=== PATIENT | male | born 1955 | race African-American/Black ===

== ENCOUNTER 2016-07-20 20:08 | Inpatient (IN) | payer MEDICARE, MEDICAID ==
[~2016-07-20] VITALS: Ht 170.2 cm; Wt 77.1 kg
[2016-07-20 20:24] VITALS: BP 137/99
[2016-07-20 20:46] LABS: BASOPHILS % (AUTO) 3.2 % (0.0-2.0); EOSINOPHILS % (AUTO) 0.5 % (0.0-3.0); LYMPHOCYTES % (AUTO) 10.6 % (20.0-45.0); MEAN CORPUSCULAR HEMOGLOBIN 33.8 PG (27.0-31.0); MEAN CORPUSCULAR HGB CONC 36.5 G/DL (32.0-36.0); MEAN CORPUSCULAR VOLUME 93 FL (80-99); MEAN PLATELET VOLUME 7.6 FL (6.5-10.1); MONOCYTES % (AUTO) 12.8 % (1.0-10.0); PLATELET COUNT 177 K/UL (150-450); RED BLOOD COUNT 4.59 M/UL (4.70-6.10); RED CELL DISTRIBUTION WIDTH 11.1 % (11.6-14.8)
[2016-07-20 21:00] VITALS: BP 150/95
[2016-07-20 21:18] LABS: TROPONIN I < 0.30 ng/mL (<=0.30)
[2016-07-20 21:19] LABS: ALANINE AMINOTRANSFERASE 24 U/L (3-41); ALBUMIN/GLOBULIN RATIO 1.1 (1.0-2.7); ANION GAP 18 (5-15); ASPARTATE AMINO TRANSFERASE 39 U/L (5-40); CALCIUM 9.7 mg/dL (8.6-10.2); CARBON DIOXIDE 23 mEQ/L (20-30); CHLORIDE 92 mEQ/L (98-107); CREATININE 1.1 mg/dL (0.7-1.2); GLOMERULAR FILTRATION RATE > 60 mL/min (>60); HEMOLYSIS 7; POTASSIUM 3.8 mEQ/L (3.4-4.9); SODIUM 133 mEQ/L (135-145); TOTAL PROTEIN 8.2 g/dL (6.6-8.7)
[2016-07-20 21:29] LABS: CKMB 8.6 ng/mL (< 6.7)
[2016-07-20 21:40] LABS: BILIRUBIN,DIRECT 0.2 mg/dL (0.1-0.3)
[2016-07-20 22:00] VITALS: BP 141/94
[2016-07-20] MEDS ORDERED: Nitroglycerin 2% oint pkt TOPIC ONE (22:00)
[2016-07-20] MEDS ORDERED: WELLBUTRIN SR150 M1 PO (22:19)
[2016-07-20] MEDS ORDERED: TAMSULOSIN HCL0.4 MG ORAL (22:19)
[2016-07-20] MEDS ORDERED: METOPROLOL ER-1 EACH PO (22:19)
[2016-07-20] MEDS ORDERED: ATIVAN2 MG ORAL (22:19)
[2016-07-20] MEDS ORDERED: NORVASC10 MG ORAL (22:41)
[2016-07-20] MEDS ORDERED: ARIPIPRAZOLE10 MG PO (22:41)
[2016-07-20] MEDS ORDERED: NICOTINE LOZENGE2 MG BC (22:41)
[2016-07-20 23:13] VITALS: BP 141/94
--- NOTE | 2016-07-20 23:16 | Emergency Room Report ---
History of Present Illness General Chief Complaint: Chest Pain Source: Patient, EMS Present Illness HPI 60-year-old male presents ED complaining of chest pain. States that chest pain started around 3 PM today while at rest. Pain is left-sided, sharp, 7/10, nonradiating. Intermittent. Denies shortness of breath. patient states he also passed out yesterday. after patient said his BP was high. unsure if he hit his head. Patient was given aspirin and nitroglycerin by EMS with some chest pain improved. Patient has history of hypertension. Denies smoking or drug use. No other aggravating relieving factors. Denies any other associated symptoms Allergies: Coded Allergies: MORPHINE (Verified Allergy, Unknown, 07/20/16) Patient History Past Medical History: HTN, COPD Past Surgical History: none Pertinent Family History: none Social History: Denies: alcohol use, drug use, smoking Immunizations: UTD Reviewed Nursing Documentation: PMH: Agreed, PSxH: Agreed Nursing Documentation-PMH Past Medical History: No History, Except For Hx Hypertension: Yes Hx COPD: Yes Review of Systems All Other Systems: negative except mentioned in HPI Physical Exam Vital Signs Date Time Temp Pulse Resp B/P Pulse Ox O2 Delivery O2 Flow Rate FiO2 07/20/16 20:09 98.6 98 16 137/99 98 Room Air Sp02 EP Interpretation: reviewed, normal General Appearance: no apparent distress, alert, GCS 15, non-toxic Head: normocephalic, atraumatic Eyes: bilateral eye PERRL, bilateral eye normal inspection ENT: hearing grossly normal, normal pharynx, no angioedema, normal voice Neck: full range of motion, supple/symm/no masses Respiratory: chest non-tender, lungs clear, normal breath sounds, speaking full sentences Cardiovascular #1: regular rate, rhythm, no edema Cardiovascular #2: 2+ carotid (R), 2+ carotid (L), 2+ radial (R), 2+ radial (L) , 2+ dorsalis pedis (R), 2+ dorsalis pedis (L) Gastrointestinal: normal bowel sounds, non tender, soft, non-distended, no guarding, no rebound Rectal: deferred Genitourinary: normal inspection, no CVA tenderness Musculoskeletal: back normal, gait/station normal, normal range of motion, non- tender Neurologic: alert, oriented x3, responsive, motor strength/tone normal, sensory intact, speech normal Psychiatric: judgement/insight normal, memory normal, mood/affect normal, no suicidal/homicidal ideation Reflexes: 3+ bicep (R), 3+ bicep (L), 3+ tricep (R), 3+ tricep (L), 3+ knee (R) , 3+ knee (L) Skin: normal color, no rash, warm/dry, well hydrated Lymphatic: no adenopathy Medical Decision Making Diagnostic Impression: Primary Impression: Syncope Qualified Codes: R55 - Syncope and collapse Additional Impression: ACS (acute coronary syndrome) ER Course Hospital Course 60-year-old male presents ED complaining of left-sided chest pain, c/o syncopal episode Differential diagnoses include: WA/unstable angina, contusion, muscle strain, PTX, rib fracture Clinical course Patient placed on stretcher. on active directory specialist. After initial history and physical I ordered labs, EKG, chest x-ray, nitropaste, CT Head labs reviewed- no leukocytosis, hb/hct stable, electrolytes ok, CK elevated, trop negative, utox negative ekg - nsr, no acute changes interpreted by me Chest x-ray- no acute process CT head unremarkable Given aspirin in the field. Given nitro paste and states chest pain is improved Case discussed with Dr. Taylor and he agreed to accept the patient to his service for further care and support I. I feel this is a highly complex case requiring extensive working including EKG/Rhythm strip, Xray/CT/US, Blood/urine lab work, repeat exams while in ED, and administration of strong opiates/narcotics for pain control, admission to hospital or close patient follow up. Diagnosis - ACS, syncope admitted to telemetry in serious condition Labs Test 07/20/16 20:20 07/20/16 21:15 White Blood Count 5.0 K/UL (4.8-10.8) Red Blood Count 4.59 M/UL (4.70-6.10) Hemoglobin 15.5 G/DL (14.2-18.0) Hematocrit 42.5 % (42.0-52.0) Mean Corpuscular Volume 93 FL (80-99) Mean Corpuscular Hemoglobin 33.8 PG (27.0-31.0) Mean Corpuscular Hemoglobin Concent 36.5 G/DL (32.0-36.0) Red Cell Distribution Width 11.1 % (11.6-14.8) Platelet Count 177 K/UL (150-450) Mean Platelet Volume 7.6 FL (6.5-10.1) Neutrophils (%) (Auto) 73.0 % (45.0-75.0) Lymphocytes (%) (Auto) 10.6 % (20.0-45.0) Monocytes (%) (Auto) 12.8 % (1.0-10.0) Eosinophils (%) (Auto) 0.5 % (0.0-3.0) Basophils (%) (Auto) 3.2 % (0.0-2.0) Sodium Level 133 mEQ/L (135-145) Potassium Level 3.8 mEQ/L (3.4-4.9) Chloride Level 92 mEQ/L (98-107) Carbon Dioxide Level 23 mEQ/L (20-30) Anion Gap 18 (5-15) Blood Urea Nitrogen 10 mg/dL (7-23) Creatinine 1.1 mg/dL (0.7-1.2) Estimat Glomerular Filtration Rate > 60 mL/min (>60) Glucose Level 99 mg/dL (74-106) Calcium Level 9.7 mg/dL (8.6-10.2) Total Bilirubin 1.1 mg/dL (0.0-1.2) Direct Bilirubin 0.2 mg/dL (0.1-0.3) Aspartate Amino Transf (AST/SGOT) 39 U/L (5-40) Alanine Aminotransferase (ALT/SGPT) 24 U/L (3-41) Alkaline Phosphatase 80 U/L (40-129) Total Creatine Kinase 731 U/L (38-174) Creatine Kinase MB 8.6 ng/mL (< 6.7) Creatine Kinase MB Relative Index 1.1 Troponin I < 0.30 ng/mL (<=0.30) Pro-B-Type Natriuretic Peptide 222 pg/mL (0-125) Total Protein 8.2 g/dL (6.6-8.7) Albumin 4.3 g/dL (3.5-5.2) Globulin 3.9 g/dL Albumin/Globulin Ratio 1.1 (1.0-2.7) Urine Opiates Screen Negative (NEGATIVE) Urine Barbiturates Screen Negative (NEGATIVE) Phencyclidine (PCP) Screen Negative (NEGATIVE) Urine Amphetamines Screen Negative (NEGATIVE) Urine Benzodiazepines Screen Negative (NEGATIVE) Urine Cocaine Screen Negative (NEGATIVE) Urine Marijuana (THC) Screen Negative (NEGATIVE) EKG Diagnostic Results Rate: normal Rhythm: NSR ST Segments: no acute changes ASA given to the pt in ED: No - given by ems Rhythm Strip Diag. Results EP Interpretation: yes Rhythm: NSR, no PVC's, no ectopy Chest X-Ray Diagnostic Results EP Interpretation: Yes Findings: no consolidation, no effusion, no pneumothorax, no acute cardiopulmonary disease Number of Views: 1 CT/MRI/US Diagnostic Results CT/MRI/US Diagnostic Results : Imaging Test Ordered: CT Head Impression no acute process Last Vital Signs Date Time Temp Pulse Resp B/P Pulse Ox O2 Delivery O2 Flow Rate FiO2 07/20/16 22:27 98.6 89 18 150/95 100 Room Air Status: improved Disposition: ADMITTED INPATIENT Condition: Serious Referrals: NOT CHOSEN ROSALIA/,REFERRING (PCP) VALENTINO WOLF M.D. Jul 20, 2016 23:16
[2016-07-21] MEDS: LORazepam 1mg tab ORAL PRN ×3 (00:31→09:23)
[2016-07-21 07:26] LABS: MEAN CORPUSCULAR HEMOGLOBIN 31.4 PG (27.0-31.0); MEAN CORPUSCULAR HGB CONC 34.2 G/DL (32.0-36.0); MEAN CORPUSCULAR VOLUME 92 FL (80-99); MEAN PLATELET VOLUME 9.7 FL (6.5-10.1); PLATELET COUNT 201 K/UL (150-450); RED BLOOD COUNT 4.74 M/UL (4.70-6.10); RED CELL DISTRIBUTION WIDTH 11.4 % (11.6-14.8); WHITE BLOOD COUNT 3.8 K/UL (4.8-10.8)
[2016-07-21 07:42] VITALS: BP 132/88
[2016-07-21 07:50] LABS: ANION GAP 15 (5-15); CALCIUM 9.3 mg/dL (8.6-10.2); CARBON DIOXIDE 23 mEQ/L (20-30); CHLORIDE 94 mEQ/L (98-107); CHOLESTEROL 178 mg/dL (< 200); CHOLESTEROL/HDL RATIO 1.9 (3.3-4.4); CREATININE 1.1 mg/dL (0.7-1.2); GLOMERULAR FILTRATION RATE > 60 mL/min (>60); HEMOLYSIS 3; LDL CHOLESTEROL (CALC.) 73 mg/dL (60-99); POTASSIUM 3.9 mEQ/L (3.4-4.9); SODIUM 132 mEQ/L (135-145)
[2016-07-21] MEDS ORDERED: Heparin 5000 units/ml inj SUBQ SCH (09:00)
[2016-07-21] MEDS ORDERED: BuPROPion SR 150mg tab ORAL SCH (09:00)
[2016-07-21] MEDS ORDERED: Metoprolol 25mg tab ORAL SCH (09:00)
[2016-07-21] MEDS ORDERED: DuoNeb 0.5-3(2.5)mg/3ml neb HHN PRN (09:45)
[2016-07-21 10:29] LABS: EOSINOPHILS % (MANUAL) 2 % (0-3); LYMPHOCYTES % (MANUAL) 40 % (20-45); NEUTROPHILS % (MANUAL) 57 % (45-75); TOTAL CELLS COUNTED 100
[2016-07-21 10:32] LABS: BAND NEUTROPHILS % (MANUAL) 0 % (0-8); BASOPHILS % (MANUAL) 0 % (0-2); PLATELET ESTIMATE ADEQUATE; PLATELET MORPHOLOGY NORMAL
--- NOTE | 2016-07-21 11:06 | Diagnostic Imaging Report ---
Indication: Chest Pain Comparison: None A single view chest radiograph was obtained. Findings: Cardiomediastinal appearance is within normal limits for age. Pulmonary vascularity is appropriate. The diaphragmatic contour is smooth and costophrenic angles are sharp. No pleural effusions are identified. The bones are osteopenic. Impression: No acute findings
[2016-07-21 11:45] VITALS: BP 138/92
[2016-07-21] MEDS ORDERED: LORazepam 1mg tab ORAL PRN (15:00)
[2016-07-21] MEDS ORDERED: NS 275ml ONE (15:58)
[2016-07-21] MEDS ORDERED: Tamsulosin 0.4mg cap ORAL SCH (21:00)
--- NOTE | 2016-07-22 08:28 | Diagnostic Imaging Report ---
Indication: Syncope Technique: Contiguous 5 mm thick transaxial imaging of the head obtained in a Siemens Sensation [address] scanner. Soft tissue and bone windows generated. Total Dose length Product (DLP): [address] Dose Index Volume (CTDIvol): 70.38 mGy Comparison: none Findings: There is mild prominence of the ventricles, basal cisterns, and cerebral sulci consistent with atrophy. Mild, nonspecific, white matter hypoattenuation is noted throughout the brain consistent with chronic small vessel disease. There is no midline shift, edema, acute hemorrhage, mass effect, or abnormal extra-axial fluid collections. Bones and extra osseous soft tissues are unremarkable. Impression: No acute intracranial bleed, mass effect or edema. Mild atrophy of the brain. Nonspecific white matter hypoattenuation probably due to chronic small vessel disease. [facility] has communicated the preliminary results to the Emergency Department. Their findings are largely concordant with this report. The CT scanner at [facility] is accredited by the [employer] and the scans are performed using dose optimization techniques as appropriate to a performed exam including Automatic Exposure control.
--- NOTE | 2016-07-23 07:04 | Cardiology Report ---
APPROVED REPORT EXAM: Two-dimensional and M-mode echocardiogram with Doppler and color Doppler. INDICATION Chest Pain M-Mode DIMENSIONS IVSd1.0 (0.7-1.1cm)Left Atrium (MM)2.0 (1.6-4.0cm) LVDd3.9 (3.5-5.6cm)Aortic Root3.0 (2.0-3.7cm) PWd1.0 (0.7-1.1cm)Aortic Cusp Exc.2.3 (1.5-2.0cm) LVDs2.0 (2.5-4.0cm) PWs1.7 cm Normal left ventricular chamber size, systolic function and wall motion. Left ventricular ejection fraction estimated to be 60 %. No evidence of ventricular hypertrophy. No evidence of pericardial fat or effusion. All other cardiac chamber sizes are within normal limits. Mild focal aortic valve sclerosis with adequate cusp excursion. Mildly thickened mitral valve leaflets with normal excursion. Mild mitral annulus and aortic root calcification. Pulmonic valve not well visualized. Normal tricuspid valve structure. IVC dilated at 2.0 cm with physiologic collapse. A color flow and spectral Doppler study was performed and revealed: No aortic regurgitation. No mitral regurgitation. Mitral diastolic velocities suggest reduced left ventricular relaxation (Grade I). Trace tricuspid regurgitation. Tricuspid systolic velocities suggests peak right ventricular systolic pressure of 29 mmHg. No pulmonic regurgitation present.
--- NOTE | 2016-07-23 11:58 | Discharge Summary ---
Discharge Summary Hospital Course Date of Admission Jul 20, 2016 at 22:38 Date of Discharge Jul 21, 2016 at 15:10 Admitting Diagnosis Acute coronary syndrome, syncope HPI Kyler Hickman is a 60 year old male who was admitted on Jul 20, 2016 at 22:38 for Acute Coronary Syndrome, Syncope Hospital Course DC SUMMARY #[id number] Discharge Condition Upon Discharge: stable Discharge Disposition Patient signed AMA Discharge Diagnoses: Discharge Instructions Discharge Instructions Special Instructions I have been assigned to complete a D/C Summary on this account. I was not involved in the patient management Leah Pop NP (Vanchtein) Jul 23, 2016 11:58
--- NOTE | 2016-07-24 03:30 | Discharge Summary 2 SIG ---
DATE OF ADMISSION: 07/20/2016 DATE OF DISCHARGE: 07/21/2016 The patient is admitted under Dr. Urbina. REASON FOR ADMISSION: The patient is a 60-year-old male, presented to the emergency room with complaint of the chest pain. He reported that chest pain started at rest. He described the pain as a left-sided, sharp, nonradiating, 7/10 on a scale 1 to 10, and intermittent in duration. The patient denies exertional shortness of breath. The patient reported that he passed out the day before coming to emergency room because his blood pressure was high. He was not sure if he hit his head. The patient was given aspirin and nitroglycerin by reformatory attendant with some improvement in chest pain. The patient has underlying history of hypertension and chronic obstructive pulmonary disease. The CT of the head was done in the emergency room and revealed no acute intracranial pathology. Chest x-ray was negative for any acute cardiopulmonary disease. Troponin was negative. EKG revealed normal sinus rhythm. No acute ischemic changes. The patient's electrolytes stable. CK with some elevation. Urine tox screen negative. ProBNP 222. The patient is admitted for further management. ADMITTING DIAGNOSES: Includes: 1. Chest pain, rule out acute coronary syndrome. 2. Syncopal episode. 3. Hypertension. HOSPITAL STAY: The patient was admitted. The patient was ordered serial troponin and echocardiogram. The patient was on telemetry floor. Blood pressure was stable. Echocardiogram revealed ejection fracture of 60% and right ventricular systolic pressure of 29. Blood pressure was managed with beta-alan and hydrochlorothiazide and it was stable. Lipid panel was stable. The patient desires to go smoking. Nicotine patch provided, but the patient declined. The patient stated that his chest pain resolved and he wanted to go home. Risks and consequences of signing against medical advice were discussed with the patient. The patient nevertheless insisted and signed the form. DISCHARGE DIAGNOSES: Includes: 1. Chest pain, rule out acute coronary syndrome. 2. Syncopal episode. 3. Hypertension. Of note, the patient was on the room air. Pulse oximetry was stable and blood pressure prior to signing against medical advice was 138/99 with pulse oximetry of 97%. CK of note was 731. Puneet Urbina M.D. I have been assigned to dictate discharge summary on this account and I was not involved in the patient's management. Leah Pop (vanchtein) NNitesh DR: SILKE JOB#: [id number] CC:
== END 2016-07-21 15:10 | disposition left against medical advice (07) | DRG 198 ==
LOC: EDBD 20:08 → EMR 21:47 → EDBEDREQ 21:54 → 2E 22:38
DX: I24.9 Acute ischemic heart disease, unspecified (principal); J44.9 Chronic obstructive pulmonary disease, unspecified; I10 Essential (primary) hypertension; Z88.6 Allergy status to analgesic agent
CPT/HCPCS: 36415; 70450; 71010; 80048; 80053; 80061; 80300; 82248; 82550; 82553; 83880; 84484; 85007; 85025; 93005; 93306